=== PATIENT | male | born 1955 | race Caucasian/White ===

== ENCOUNTER 2017-01-30 16:25 | Observation (INO) ==
--- NOTE | 2017-01-30 18:10 | History & Physical Report ---
<Eunice Leos - Last Filed: 01/30/17 17:48> History of Present Illness Date: 01/30/17 Chief complaint: chills, anorexia HPI: Kale Jaeger is a 61 y/o male directly admitted from [facility]. HPI was obtained from Rukhsana Bui APRN. He saw Rukhsana Bui APRN about a week ago for an oral infection, SOA, night sweats, weight loss and anorexia, and memory loss. Labs and CXR were reportedly unremarkable. His SOA improved after he filled an Rx for a new inhaler. He followed up with Rukhsana on 01/30/17, and his described more confusion - i.e. he was arguing with a cat, then started arguing with denying the argument with the cat. He still has no appetite and isn't eating much. He is essentially unresponsive when sleeping - his couldn't even wake him up. His gait appeared more rigid. Concerned about Wernicke-Korsakoff syndrome, arrangements were made for direct admission to [facility]. Kale was seen in his room. He was A&O and seemed to be a good historian, though couldn't understand why he was hospitalized. He admits to having SOA, but that resolved after resuming his inhaler. He's noticed occasional periods of feeling "befuddled" but can't say that he's been overly confused. He quit drinking around this time last year - prior to that he was drinking at least a pint of whiskey each night for many, many years. He used to weigh 165 lbs but was 140 lbs on admission. He states that he's had a poor appetite, but isn't sure how long he's been losing weight. He has had blurred vision, which he states is chronic and is why he wears glasses. He states that he's always off- balance but denies any falls, trauma, or trauma-induced wounds. Kale reports occasional paresthesias to both hands, but not currently. He has a chronic cough , which he describes as a "smoker's cough" that hasn't changed recently. He complains of chills, and when asked about the night sweats, he agreed but wasn' t concerned. He denies any n/v/d; last bm was this am (green in color). Kale notes some palpitations and occasionally a fast-feeling HR but has not had any chest pain or leg swelling. Kale denies sinus drainage, changes swallowing, unilateral weakness, abdominal pain, urinary changes, easy bruising/bleeding. He denies any hx of IV drug use, HIV, or hepatitis. Review of Systems All systems PM: 10-point ROS was reviewed, no additional remarkable complaints except - Constitutional Constitutional: Present: as per HPI - EENMT Eyes: Present: as per HPI Balance: Present: as per HPI Nose: Present: as per HPI Mouth/Throat: Present: as per HPI - Cardiovascular Cardiovascular: Present: palpitations Vascular: Present: see HPI - Respiratory Respiratory: Present: as per HPI - Gastrointestinal Gastrointestinal: Present: as per HPI - Genitourinary Genitourinary: Present: as per HPI - Musculoskeletal Musculoskeletal: Present: as per HPI - Integumentary/Breasts Integumentary: Absent: wounds - Neurological Neurological: Present: as per HPI - Psychiatric Psychiatric: Present: as per HPI - Endocrine Endocrine: Present: as per HPI - Hematologic/Lymphatic Hematologic/Lymphatic: Present: as per HPI PFSH COPD/emphysema EtOH abuse Tobacco dependency Surgical History: T&A. Appendectomy - Social History Smoking status: Current every day smoker Packs per day: 1 Packs-years: 50 Substance use type: marijuana (previous) Alcohol intake frequency: former alcohol drinker (used to drink at least 1 pint of whiskey each night) Household members: significant other (he was primary caregiver for his when she was very ill with polycythemia a couple years ago - he admits to having a great deal of stress from this) Current occupational status: disabled (states disabled from "being an alcoholic ") Social history: PCP - Medications Home Medications Medication Instructions Recorded Confirmed Type Albuterol Sulfate [Proair Hfa] 8.5 gm IH PRN #0 11/27/12 History Fluoxetine HCl [Prozac] 20 mg PO DAILY #0 11/25/13 01/30/17 History Fluticasone/Salmeterol [Advair 1 dose INH BID #0 11/25/13 History 250-50 Diskus] Aspirin [Aspirin EC] 81 mg PO 01/30/17 History Allergies Allergy/AdvReac Type Severity Reaction Status Date / Time Julio Allergy Severe ANAPHYLAXIS Verified 11/25/13 16:38 diphenhydramine AdvReac Unknown INTERACTS Verified 11/25/13 16:38 WITH LYRICA SO CANNOT TAKE Exam Vital Signs: Temperature 98.8 F 01/30/17 17:18 Pulse Rate 78 01/30/17 17:18 Respiratory Rate 18 01/30/17 17:18 Blood Pressure 152/67 H 01/30/17 17:18 Pulse Oximetry 95 01/30/17 17:18 Height/Weight/BMI: Weight 63.7 kg - Constitutional Present: no acute distress, thin - Routine HEENT Exam Head: Present: normocephalic Eye: Present: EOMI, PERRL, normal accommodation. Absent: conjunctival icterus, scleral injection ENT: Present: mucous membranes moist, oropharynx clear Comments: pharyngeal erythema - he states from cinnamon mints - Routine Neck Exam Present: supple. Absent: lymphadenopathy, thyromegaly - Routine Respiratory Exam Present: CTA bilaterally - Routine Cardiovascular Exam Present: RRR, S1, S2 - Routine Abdominal Exam Present: soft, normoactive bowel sounds (hyperactive), non distended, non tender - Routine Extremities Exam Present: no edema, pulses intact - Routine Skin Exam Present: intact, dry, warm - Routine Neurological Exam Present: alert, oriented X3, CN II-XII intact, moving all extremities, vision grossly intact, hearing grossly intact, normal speech. Absent: sensory deficit , motor deficit, altered mental status, nystagmus, facial asymmetry, tremors no difficulty with rapid alternating movements bilaterally - Routine Psychiatric Exam Present: normal affect, normal thought process, cooperative Assessment and Plan (1) Encephalopathy acute Current visit: Yes Status: Acute Resuscitation Status: Full Code Assessment and Plan: ASSESSMENT Acute encephalopathy Anorexia with 25 lb weight loss Gait changes COPD/emphysema EtOH abuse - quit drinking 1 year ago Tobacco dependency PLAN Admit, observation status. Multiple labs (CBC, CMP, B12, thiamine, TSH, UDS, HIV, mag, phos, prealbumin, NH3) & MRI brain ordered. Dr. Canales consulted & notified. Start IV thiamine and folate with significant EtOH hx. Consider psychiatric consultation. Consult PT/OT to evaluate gait. Nicotine patch PRN - consult RT for tobacco cessation counseling. Discussed with Dr. Corona. Requested records from . PPX: SCDs. Hospital Course Summary Disclaimer: The visit summary below is not to be considered part of the above Progress Note. Hospital Course: 01/30/17 18:32 ASSESSMENT Acute encephalopathy Anorexia with 25 lb weight loss Gait changes COPD/emphysema EtOH abuse - quit drinking 1 year ago Tobacco dependency PLAN Admit, observation status. Multiple labs (CBC, CMP, B12, thiamine, TSH, UDS, HIV, mag, phos, prealbumin, NH3) & MRI brain ordered. Dr. Canales consulted & notified. Start IV thiamine and folate with significant EtOH hx. Consider psychiatric consultation. Consult PT/OT to evaluate gait. Nicotine patch PRN - consult RT for tobacco cessation counseling. Discussed with Dr. Corona. Requested records from . PPX: SCDs. <Leeanne Corona - Last Filed: 01/30/17 20:25> History of Present Illness Date: 01/30/17 Exam Vital Signs: Temperature 98.8 F 01/30/17 17:18 Pulse Rate 66 01/30/17 18:54 Respiratory Rate 18 01/30/17 17:18 Blood Pressure 152/67 H 01/30/17 17:18 Pulse Oximetry 95 01/30/17 17:18 Height/Weight/BMI: Weight 63.7 kg Results - Labs CBC & Chem 7: 01/30/17 18:38 01/30/17 18:38 - ABG Interpretation ABG results: 01/30/17 17:48 ABG pH 7.470 H ABG pCO2 41 ABG pO2 70 L ABG HCO3 30 H ABG Total CO2 31.1 H ABG O2 Saturation 95.0 ABG Base Excess 5.6 H Assessment and Plan (1) Encephalopathy acute Current visit: Yes Status: Acute DVT Prophylaxis: SCD's Assessment and Plan: I have independently evaluated and examined this patient. I reviewed the chart, the patient's history, and the [employer]/PA's documented findings as above. We discussed and formulated the assessment and plan as above with additions as below: Kale presents with above described history. He acknowledges having some difficulty walking indicating he feels stiff at times but doesn't fall and hasn' t noticed anything particularly abnormal recently. He has occasional tremors at rest. His primary concern is why he has chills frequently. He hasn't noticed night sweats but reports his has. He is aware of episodic memory loss but reports he never loses a day or 2 at a time. He attributes weight loss due to difficulty chewing foods due to poorly fitting denture and chronic irritation of his gums. He is not aware of fever. He acknowledges stress/depression and recently resumed fluoxetine per his request. The patient is alert at the time seen and in no distress. EOMI, no nystagmus, facial structure symmetric, no cervical or supraclavicular adenopathy present. No palpebral hemorrhages identified; 2 very small possible splinter hemorrhages in left nailbeds noted. Respirations nonlabored, good airflow, breath sounds clear Regular cardiac rhythm, S1-S2, very brief early systolic murmur noted Abdomen benign No tremors present at time of my exam nor cogwheeling, normal motor tone, finger -nose-finger, heel knee guerrero normal eye laterally, patient ambulated without assistance in the [place] and gait was not particularly rigid although he has slight limb and appears to have minor reduced weightbearing on one leg. Gait was not wide-based and lipase was normal. Screening labs are unremarkable, HIV negative, ABG without CO2 retention. TSH normal. MRI ordered. In addition to previously noted testing will obtain blood cultures due to reported chilling and night sweats. Patient has chronic irritation of his gums and is at risk for bacteremia. Continue home medications in addition to vitamin supplementation discussed above. Discussed with primary care provider, imaging pending. Hospital Course Summary Disclaimer: The visit summary below is not to be considered part of the above Progress Note. Addendum entered and electronically signed by Eunice Leos APRN 01/30/17 19: 00: I spoke to Rukhsana Bui APRN - she states that all labs done a week ago were completely normal. She will fax office note and labs over tomorrow am. She also reports that she restarted Prozac a week ago at 20 mg (used to take 60 mg). His EtOH hx is significant - in addition to drinking a pint a day, he also had episodes of massive intake, and also has a hx of alcohol withdrawal seizures ( though hasn't had one for quite some time). He and his have an emotionally charged relationship but she has been instrumental in helping him quit drinking.
[2017-01-30] MEDS ORDERED: NICOTINE 21 MG PATCH TD PRN (18:25)
[2017-01-30] MEDS ORDERED: NICOTINE PATCH REMOVAL TD PRN (18:34)
[2017-01-30] MEDS: THIAMINE 200mg/2ml INJECTION IVP SCH (18:53)
[2017-01-30] MEDS: FOLIC ACID 5 MG/ML INJECTION IVP SCH (19:00)
[2017-01-31 08:08] VITALS: BP 141/72; TEMP 98.8
[2017-01-31 08:09] VITALS: O2SAT 98
[2017-01-31 08:48] VITALS: RESP 16
[2017-01-31] MEDS ORDERED: FLUoxetine 20 MG CAPSULE PO SCH (09:00)
[2017-01-31] MEDS: THIAMINE 200mg/2ml INJECTION IVP SCH (09:53)
[2017-01-31] MEDS: FOLIC ACID 5 MG/ML INJECTION IVP SCH (09:59)
[2017-01-31 10:28] VITALS: BMI 21.2
--- NOTE | 2017-01-31 11:25 | Consultation ---
DATE OF CONSULTATION 01/31/[address] Corona The patient's chief complaint is a balance problem. HISTORY OF PRESENT ILLNESS The patient is a 61-year-old male with history of alcohol abuse, asthma and anxiety disorder. The patient has been complaining of insidious onset balance and coordination problem for the past few days. This has been witnessed by his mainly. The patient denies having any fall or loss of consciousness. He has had some mild numbness in his hands only. He denies having any weakness in the legs or numbness in the legs. He has had no lower back or neck problem. He denies having any recent head injury or trauma. The patient said that he became sober a year ago and he has not been drinking. He has had some problems with breathing and palpitations on admission which have improved. Currently patient is doing better. He has done work with Physical Therapy earlier in the morning and he has done very well. They could not find any deficit on his walking and balance. The patient is going to have an MRI of the brain later today. EXAM On physical examination the patient was awake, alert, oriented x 3. Pupils were round, reactive and equal. Extraocular muscles were intact. Visual field was full. Speech was fluent. Motor examination was 5/5. Sensory examination was symmetrical to light touch, pinprick and vibration sensation. Deep tendon reflexes were 2/4. Plantar reflexes were in flexion bilaterally. Coordination for [id number] was normal bilaterally. Gait was normal as per Physical Therapy. ASSESSMENT AND PLAN 1. Insidious onset balance and coordination problem associated with the patient's sickness and ill feeling. This can be related to low blood pressure or fatigue. The patient has no current focal neurological deficit. We cannot rule out a TIA or mild stroke. PLAN 1. Agree with MRI of the brain to rule out stroke or any other brain lesions. 2. Provide good fluid intake and optimize treatment for the patient's asthma and anxiety. 3. Consider outpatient physical therapy if patient's condition lingers. GAGE
--- NOTE | 2017-01-31 11:58 | Magnetic Resonance Report ---
Indication: confusion; gait changes PROCEDURE: MR head/brain wo con: Encounter: Initial Comparisons: Brain MRI dated December 15, 2012 Technique: Multiplanar, multisequence, MR imaging of the head without contrast was acquired. FINDINGS: The ventricles are of normal size, shape, and contour for the patient's age. There are small nonspecific punctate areas of T2-weighted and T2 FLAIR weighted signal abnormality in the deep frontoparietal white matter that most likely represent small vessel ischemic disease. This is mildly progressed from the comparison study with a few new lesions seen in the left frontal and parietal lobes. The brain stem, cerebellum, and cerebral hemispheres otherwise have a normal morphologic appearance as well as MR signal intensity on all pulse sequences. There are no areas of restricted diffusion on diffusion weighted imaging to suggest an acute infarct. There is no evidence of an intracranial mass lesion, intracranial hemorrhage, or hydrocephalus. The visualized portions of the orbits, calvarium, paranasal sinuses, and skull base demonstrate no significant abnormality. IMPRESSION: Mild interval progression of white matter disease probably representing chronic microvascular ischemia. No acute intracranial abnormality seen. .
[2017-01-31 12:23] VITALS: PULSE 65
--- NOTE | 2017-01-31 14:26 | Discharge Summary ---
<DericEunice D - Last Filed: 01/31/17 14:23> Discharge Information Date of admission: 01/30/17 16:46 Anticipated date of discharge: 01/31/17 Attending Physician: Leeanne Corona MD Primary care physician: Rukhsana Bui APRN Consults: 01/30/17 18:10 Dietary Consult [CONS] Routine Comment: Reason For Exam: 01/30/17 18:19 Physician Consult [CONS] Routine Consulting Provider: Sabrina Canales Reason For Exam: confusion; gait changes Ordering Provider has Notified Cpo: Yes - Discharge Diagnosis (1) Encephalopathy acute Status: Acute - Laboratory Labs: 01/30/17 18:38 01/30/17 18:38 - Microbiology Microbiology 01/30/17 20:42 Peripheral/Iv Start Blood Culture - Preliminary Culture Initiated - Results Pending 01/30/17 20:46 Peripheral/Iv Start Blood Culture - Preliminary Culture Initiated - Results Pending - Radiology Radiology: MR head/brain without contrast FINDINGS: The ventricles are of normal size, shape, and contour for the patient' s age. There are small nonspecific punctate areas of T2-weighted and T2 FLAIR weighted signal abnormality in the deep frontoparietal white matter that most likely represent small vessel ischemic disease. This is mildly progressed from the comparison study with a few new lesions seen in the left frontal and parietal lobes. The brain stem, cerebellum, and cerebral hemispheres otherwise have a normal morphologic appearance as well as MR signal intensity on all pulse sequences. There are no areas of restricted diffusion on diffusion weighted imaging to suggest an acute infarct. There is no evidence of an intracranial mass lesion, intracranial hemorrhage, or hydrocephalus. The visualized portions of the orbits, calvarium, paranasal sinuses, and skull base demonstrate no significant abnormality. IMPRESSION: Mild interval progression of white matter disease probably representing chronic microvascular ischemia. No acute intracranial abnormality seen. History of Present Illness HPI: Kale Jaeger is a 61 y/o male directly admitted from [facility]. HPI was obtained from Rukhsana Bui APRN. He saw Rukhsana Bui APRN about a week ago for an oral infection, SOA, night sweats, weight loss and anorexia, and memory loss. Labs and CXR were reportedly unremarkable. His SOA improved after he filled an Rx for a new inhaler. He followed up with Rukhsana on 01/30/17, and his described more confusion - i.e. he was arguing with a cat, then started arguing with denying the argument with the cat. He still has no appetite and isn't eating much. He is essentially unresponsive when sleeping - his couldn't even wake him up. His gait appeared more rigid. Concerned about Wernicke-Korsakoff syndrome, arrangements were made for direct admission to [facility]. Kale was seen in his room. He was A&O and was a good historian, though couldn' t understand why he was hospitalized. He admits to having SOA, but that resolved after resuming his inhaler. He's noticed occasional periods of feeling "befuddled" but can't say that he's been overly confused. He quit drinking around this time last year - prior to that he was drinking at least a pint of whiskey each night for many, many years. He used to weigh 165 lbs but was 140 lbs on admission. He states that he's had a poor appetite, but isn't sure how long he's been losing weight. He has had blurred vision, which he states is chronic and is why he wears glasses. He states that he's always off-balance but denies any falls, trauma, or trauma-induced wounds. Kale reports occasional paresthesias to both hands, but not currently. He has a chronic cough, which he describes as a "smoker's cough" that hasn't changed recently. He complains of chills, and when asked about the night sweats, he agreed but wasn't concerned. He denies any n/v/d; last bm was this am (green in color). Kale notes some palpitations and occasionally a fast-feeling HR but has not had any chest pain or leg swelling. Kale denies sinus drainage, changes swallowing, unilateral weakness, abdominal pain, urinary changes, easy bruising/bleeding. He denies any hx of IV drug use, HIV, or hepatitis. Objective Vital signs: Temperature 98.8 F 01/31/17 08:05 Pulse Rate 65 01/31/17 08:09 Respiratory Rate 16 01/31/17 08:46 Blood Pressure 141/72 H 01/31/17 08:05 Pulse Oximetry 98 01/31/17 08:05 Rhythm: Normal Sinus Rhythm Height/Weight/BMI: Height 1.73 m Weight 63.503 kg Body Mass Index 21.2 - Constitutional Present: no acute distress, well nourished, well developed, thin - Routine HEENT Exam Head: Present: normocephalic Eye: Absent: conjunctival icterus ENT: Present: mucous membranes moist - Routine Respiratory Exam Present: CTA bilaterally - Routine Cardiovascular Exam Present: RRR, S1, S2 - Routine Abdominal Exam Present: soft, normoactive bowel sounds, non distended - Routine Extremities Exam Present: no edema - Routine Musculoskeletal Exam Musculoskeletal: Present: moving extremities well - Routine Skin Exam Present: intact, dry, warm - Routine Neurological Exam Present: alert, oriented X3, CN II-XII intact - Routine Psychiatric Exam Present: normal affect, normal thought process, cooperative Hospital Course This is a general summary of the patient's hospital course. For more details refer to the complete medical record. Hospital course: ASSESSMENT Acute encephalopathy Vitamin B12 deficiency Depression Anorexia with 25 lb weight loss Gait changes COPD/emphysema EtOH abuse - quit drinking 1 year ago Tobacco dependency C3 transverse process fracture RLS Mixed hyperlipidemia PLAN Admitted to observation status on 01/30/17. Labs were done, including CBC, CMP, B12, thiamine, TSH, HIV, mag, phos, prealbumin, NH3 - these were normal except for low B12 (182). Brain MR on 01/31/17 showed white matter disease but was negative for acute findings. He was started on thiamine and folate. Dr. Canales was consulted - he did not find any neurologic compromise. PT evaluated him, and they felt he was safe to be discharged home. He is somewhat interested in quitting smoking, and looked at the information RT provided him on quitting. He also admits to being very depressed, and is thankful that Rukhsana restarted Prozac. We discussed the possibility of seeing a psychiatrist , but he wants to see how he responds to Prozac first. With his history of EtOH abuse and vitamin B12 deficiency, we recommended taking a vitamin and [id number] vitamin B12. He should follow up with Rukhsana Bui APRN in a week. He verbalized an understanding of discharge instructions and was sent home in stable condition. Time spent with patient: discharge greater than 30 minutes Discharge Plan - Med Rec/Dispo Referrals/Follow Up: Rukhsana Bui APRN [Family Provider] - 1 Week (02/07/2017 at 9:45am ) Prescriptions: New Cyanocobalamin (Vitamin B-12) [Vitamin B-12] 1 tab PO DAILY #30 tab Vit Calc,Iron,Folic [ Vitamins] 1 each PO DAILY #60 tablet Continue Albuterol Sulfate [Proair Hfa] 8.5 gm IH PRN #0 PRN Reason: Shortness Of Air Fluticasone/Salmeterol [Advair 250-50 Diskus] 1 dose INH BID #0 Fluoxetine HCl [Prozac] 20 mg PO DAILY #0 Aspirin [Aspirin EC] 81 mg PO - Disposition 01 Discharged Home, Self-Care <Leeanne Corona - Last Filed: 01/31/17 21:13> Discharge Information Date of admission: 01/30/17 16:46 - Discharge Diagnosis (1) Encephalopathy acute Status: Acute - Laboratory Labs: 01/30/17 18:38 01/30/17 18:38 - Microbiology Microbiology 01/30/17 20:42 Peripheral/Iv Start Blood Culture - Preliminary No Growth After 1 Day 01/30/17 20:46 Peripheral/Iv Start Blood Culture - Preliminary No Growth After 1 Day Objective Vital signs: Temperature 98.8 F 01/31/17 08:05 Pulse Rate 65 01/31/17 08:09 Respiratory Rate 16 01/31/17 08:46 Blood Pressure 141/72 H 01/31/17 08:05 Pulse Oximetry 98 01/31/17 08:05 Height/Weight/BMI: Height 1.73 m Weight 63.503 kg Body Mass Index 21.2 Hospital Course This is a general summary of the patient's hospital course. For more details refer to the complete medical record. Hospital course: I have independently evaluated and examined this patient. I reviewed the chart, the patient's history, and the [employer]ATOR/PA's documented findings as above. We discussed and formulated the assessment and plan as above with additions as below: Mr. Jaeger voiced no concerns today. He continues to deny knowledge being stressed. He ambulated without difficulty, was alert, and respirations were nonlabored. Case was reviewed with Dr. Canales as noted above and MRI demonstrated only minor small vessel changes consistent with age. B-12 supplementation initiated and patient to follow-up with primary provider in the near future. Stable for discharge.
== END 2017-01-31 15:45 | disposition home or self-care (01) ==
LOC: MED
PROVIDERS: ADMIT Internal Medicine; ATTEND Internal Medicine